=== PATIENT | female | born 1965 | race Caucasian/White ===

== ENCOUNTER 2019-01-18 12:06 | Day surgery (SDC) | payer OTHER ==
[~2019-01-18 12:06] MED LIST: PROPOFOL 200 MG INJ
[2019-01-18] MEDS ORDERED: LIDOCAINE 2% (SDV) 5 ML INJ (14:24)
[2019-01-18] MEDS ORDERED: PROPOFOL 40 ML (14:24)
== END 2019-01-18 16:10 | disposition home or self-care (01) ==
LOC: GIL 12:06
DX: Z12.11 Encounter for screening for malignant neoplasm of colon (principal); K51.20 Ulcerative (chronic) proctitis without complications; I10 Essential (primary) hypertension; J45.909 Unspecified asthma, uncomplicated
CPT/HCPCS: 45331; 84703; 88305